=== PATIENT | male | born 1950 | race Asian ===

== ENCOUNTER 2022-01-05 02:03 | Emergency (ER) | payer MEDICARE ==
[~2022-01-05] VITALS: Ht 154.9 cm; Wt 51.3 kg
[2022-01-05 02:10] VITALS: BP_SYST 130
--- NOTE | 2022-01-05 02:12 | NUR ---
Placed pt on [facility] ambulated steady, connected to bedside monitor,VS taken afebrile.
[2022-01-05] MEDS ORDERED: MORPHINE 2 MG/ML INJ. SYRINGE IVP ONE (02:30)
[2022-01-05] MEDS ORDERED: ONDANSETRON HCL 4 MG/2 ML VIAL IVP ONE (02:30)
[2022-01-05] MEDS ORDERED: NACL 0.9% 1,000 ML IV ONE (02:30)
[2022-01-05] MEDS ORDERED: PANTOPRAZOLE SODIUM 40 MG/VIAL (PROTONIX) IVP ONE (02:30)
[2022-01-05] MEDS ORDERED: ASPIRIN 325 MG TABLET PO ONE (02:45)
--- NOTE | 2022-01-05 02:50 | NUR ---
IV start at Lt upper arm G18 blood draw taken and sent tolab,voided in bathroom and urine sample collected and sent to lab. NS 1L infusing, all meds refused by patient informed Dr Dawson returned to matt, VSS no complains of pain
[2022-01-05 03:11] LABS: BASOPHILS % (AUTO) 0.6 % (0.0-2.0); EOSINOPHILS % (AUTO) 0.4 % (0.0-4.0); HEMATOCRIT 42.2 % (36-54); HEMOGLOBIN 14.3 g/dL (14.0-18.0); LYMPHOCYTES % (AUTO) 14.2 % (20.5-51.5); MEAN CORPUSCULAR HEMOGLOBIN 30 pg (27-31); MEAN CORPUSCULAR HGB CONC 34 % (32-36); MEAN CORPUSCULAR VOLUME 90 fL (79.0-98.0); MONOCYTES # (AUTO) 0.4 K/uL (0.0-1.0); MONOCYTES % (AUTO) 5.3 % (1.7-9.3); NEUTROPHILS # (AUTO) 5.8 K/uL (1.8-7.7); NEUTROPHILS % (AUTO) 79.5 % (40.0-70.0); PLATELET COUNT (AUTO) 163 K/uL (130-430); RED BLOOD CELL COUNT(AUTO) 4.71 MIL/uL (4.2-6.2); RED CELL DISTRIBUTION WIDTH 13.9 % (9.0-15.0); WHITE BLOOD COUNT (AUTO) 7.2 K/uL (4.8-10.8)
[2022-01-05 03:16] LABS: ANION GAP 9 (5-15); CALCIUM 9.5 mg/dL (8.4-11.0); CHLORIDE 103 mmol/L (98-107); CREATININE 0.67 mg/dL (0.55-1.30); GLUCOSE 125 mg/dL (70-99); POTASSIUM 3.7 mmol/L (3.5-5.1); SODIUM SERUM 139 mmol/L (136-145); UREA NITROGEN, BLOOD 25 mg/dL (8-21)
--- NOTE | 2022-01-05 03:20 | NUR ---
Pt refused CT abdomen Dr Dawson aware he spoke to patient and explained important of it vs not doing anything.
[2022-01-05 03:28] LABS: ALANINE AMINOTRANSFERASE 25 U/L (12-78); ALBUMIN 3.9 g/dL (3.4-4.8); ASPARTATE AMINOTRANSFERASE 24 U/L (10-37); LIPASE 134 U/L (73-393); TOTAL BILIRUBIN 0.5 mg/dL (0.0-1.0)
--- NOTE | 2022-01-05 03:30 | NUR ---
Abdominal Xray done, awaiting results, EKG done NSR seen by DR Mancilla
[2022-01-05 03:34] LABS: BILIRUBIN,URINE NEGATIVE (NEGATIVE); CLARITY/URINE CLEAR (CLEAR); COLOR,URINE YELLOW (YELLOW); GLUCOSE,URINE NEGATIVE (NEGATIVE); KETONES,URINE NEGATIVE (NEGATIVE); LEUKOCYTE ESTERASE ,URINE NEGATIVE (NEGATIVE); NITRITE, URINE NEGATIVE (NEGATIVE); PROTEIN URINE NEGATIVE (NEGATIVE); UROBILINOGEN,URINE 0.2 (0.2-1.0)
[2022-01-05 03:37] LABS: BLOOD, URINE TRACE (NEGATIVE)
--- NOTE | 2022-01-05 05:00 | NUR ---
ambulated 3x to bathroom steady gait no c/o pain.
--- NOTE | 2022-01-05 05:30 | NUR ---
blood drawn for repeat troponin awaitng results
[2022-01-05 06:24] VITALS: BP_SYST 132
[2022-01-05] MEDS ORDERED: OMEP20CA15 PO (06:49)
--- NOTE | 2022-01-05 06:59 | NUR ---
Patient given written and verbal discharge instructions and verbalizes understanding. OSCAR Carver MD discussed with patient the results and treatment provided. Patient in stable condition. Patient educated on pain management and to follow up with PMD. Pain Scale [0]. Opportunity for questions provided and answered. Medication side effect fact sheet provided.
== END 2022-01-05 06:57 | disposition home or self-care (01) ==
LOC: SED 02:03
DX: R10.13 Epigastric pain (principal)
CPT/HCPCS: 36415; 74018; 80053; 81003; 83690; 84484; 85025; 93005; 96360; 99285; C9113; J7030; J2270; J2405

== ENCOUNTER 2023-11-29 22:12 | Emergency (ER) | payer MEDICARE ==
[~2023-11-29] VITALS: Ht 160 cm; Wt 59.0 kg
[~2023-11-29 22:12] MED LIST: OMEP20CA15 PO
[2023-11-29 22:15] VITALS: BP_SYST 154; PULSE 76; RESP 20; TEMP 98.7; O2SAT 94
[2023-11-29] MEDS ORDERED: iohexoL 350 mgI/mL, 100 ML INFUS..BTL IV ONE (22:39)
[2023-11-29 23:26] LABS: BASOPHILS % (AUTO) 0.7 % (0.0-2.0); EOSINOPHILS # (AUTO) 0.2 K/uL (0.0-0.4); EOSINOPHILS % (AUTO) 3.5 % (0.0-4.0); HEMATOCRIT 35.4 % (36-54); HEMOGLOBIN 12.4 g/dL (14.0-18.0); LYMPHOCYTES # (AUTO) 1.6 K/uL (1.0-5.5); LYMPHOCYTES % (AUTO) 27.5 % (20.5-51.5); MEAN CORPUSCULAR HEMOGLOBIN 32 pg (27-31); MEAN CORPUSCULAR HGB CONC 35 % (32-36); MEAN CORPUSCULAR VOLUME 91 fL (79.0-98.0); MONOCYTES # (AUTO) 0.4 K/uL (0.0-1.0); MONOCYTES % (AUTO) 7.2 % (1.7-9.3); NEUTROPHILS # (AUTO) 3.5 K/uL (1.8-7.7); NEUTROPHILS % (AUTO) 61.1 % (40.0-70.0); PLATELET COUNT (AUTO) 147 K/uL (130-430); RED BLOOD CELL COUNT(AUTO) 3.89 MIL/uL (4.2-6.2); RED CELL DISTRIBUTION WIDTH 13.6 % (9.0-15.0); WHITE BLOOD COUNT (AUTO) 5.7 K/uL (4.8-10.8)
[2023-11-29 23:44] LABS: PROTHROMBIN TIME 10.1 SECS (9.5-12.5)
[2023-11-29 23:45] LABS: HEMOGLOBIN A1C 5.64 % (<5.7)
[2023-11-30 00:05] LABS: ANION GAP 8 (5-15); CARBON DIOXIDE 30 mmol/L (23-29); CHLORIDE 103 mmol/L (98-107); CREATININE 0.83 mg/dL (0.55-1.30); GLUCOSE 95 mg/dL (74-106); POTASSIUM 3.5 mmol/L (3.5-5.1); SODIUM SERUM 141 mmol/L (136-145); UREA NITROGEN, BLOOD 24 mg/dL (8-21)
[2023-11-30] MEDS: KETOROLAC TROMETHAMINE 30 MG VIAL IVP ONE (00:08)
[2023-11-30] MEDS: METOCLOPRAMIDE HCL 10 MG/2 ML VIAL IVP ONE (00:12)
[2023-11-30] MEDS: ACETAMINOPHEN 500 MG TABLET PO ONE (00:16)
[2023-11-30 01:11] LABS: BILIRUBIN,URINE NEGATIVE (NEGATIVE); BLOOD, URINE NEGATIVE (NEGATIVE); CLARITY/URINE CLEAR (CLEAR); COLOR,URINE YELLOW (YELLOW); GLUCOSE,URINE NEGATIVE (NEGATIVE); KETONES,URINE NEGATIVE (NEGATIVE); LEUKOCYTE ESTERASE ,URINE NEGATIVE (NEGATIVE); NITRITE, URINE NEGATIVE (NEGATIVE); PH,URINE 6.5 (5.0-8.0); PROTEIN URINE NEGATIVE (NEGATIVE); UROBILINOGEN,URINE 0.2 (0.2-1.0)
[2023-11-30 01:26] LABS: BARBITURATE, URINE NEGATIVE (NEG <=200); BENZODIAZEPINE, URINE NEGATIVE (NEG <=150); CANNABINOID, URINE NEGATIVE (NEG <=50); COCAINE, URINE NEGATIVE (NEG <=150); METHAMPHETAMINES SCREEN,URINE NEGATIVE (NEG <=500); OPIATE, URINE NEGATIVE (NEG <=100); PHENCYCLIDINE SCREEN,URINE NEGATIVE (NEG <=25); UR TRICYCLIC ANTIDEPRESSANTS NEGATIVE (NEG <=300); URINE AMPHETAMINE NEGATIVE (NEG <=500); URINE METHADONE NEGATIVE (NEG <=200); URINE OXYCODONE SCREEN NEGATIVE (NEG <=100)
[2023-11-30] MEDS: NACL 0.9% 1,000 ML IV ONE (02:02)
[2023-11-30 04:02] VITALS: BP_SYST 127; PULSE 71; RESP 16; TEMP 97.3; O2SAT 98
== END 2023-11-30 04:02 | disposition home or self-care (01) ==
LOC: SED 22:12
DX: R20.2 Paresthesia of skin (principal); G43.909 Migraine, unspecified, not intractable, without status migrainosus; Z79.899 Other long term (current) drug therapy
CPT/HCPCS: 99285; 70496; 71045; 80307; 80048; 83037; 85025; 85610; 85730; 86886; 86900; 86901; 84484; 36415; 70498; 82948; 81003; 81001; 70450; 96374; 96361; 76376; Q9967; J1885; J2765; J7030